=== PATIENT | female | born 1935 | race Caucasian/White ===

== ENCOUNTER 2018-11-06 12:37 | Inpatient (IN) | payer MEDICARE, OTHER ==
[~2018-11-06] VITALS: Ht 177.8 cm; Wt 72.7 kg
[~2018-11-06 12:37] MED LIST: ASCO500 PO; ATOR10 PO; Aspirin EC81 MG PO; CALCIUM + VITA1 EAC1 PO; Dyazide 37.5-21 EACH PO; FOLATE; TERB250 PO
[2018-11-06 13:40] LABS: BASOPHILS ABSOLUTE AUTO 0.02 K/mm3 (0.00-0.23); BASOPHILS PERCENT AUTO 0 % (0-2); EOSINOPHILS ABSOLUTE AUTO 0.02 K/mm3 (0.00-0.68); EOSINOPHILS PERCENT AUTO 0 % (0-6); Hematocrit 41.8 % (33.0-51.0); Hemoglobin 14.3 g/dL (11.5-16.0); IMMATURE GRAN ABSOLUTE AUTO 0.01 K/mm3 (0.00-0.10); IMMATURE GRAN PERCENT AUTO 0 % (0-1); LYMPHOCYTES ABSOLUTE AUTO 1.04 K/mm3 (0.84-5.20); LYMPHOCYTES PERCENT AUTO 21 % (21-46); MONOCYTES ABSOLUTE AUTO 0.46 K/mm3 (0.16-1.47); MONOCYTES PERCENT AUTO 9 % (4-13); Mean Corpuscular HGB 30.1 pg (26.0-34.0); Mean Corpuscular HGB Conc 34.2 g/dL (31.5-36.5); Mean Corpuscular Volume 88 fL (80-100); Mean Platelet Volume 10.3 fL (9.1-12.4); NEUTROPHILS ABSOLUTE AUTO 3.43 K/mm3 (1.96-9.15); NEUTROPHILS PERCENT AUTO 69 % (41-73); Platelet Count 221 K/mm3 (150-400); RDW Coefficient Variation 11.9 % (11.7-14.2); RDW Standard Deviation 38.3 fL (35.1-46.3); Red Blood Cell Count 4.75 M/mm3 (3.80-5.20); White Blood Cell Count 4.98 K/mm3 (4.00-11.30)
[2018-11-06 13:53] LABS: Albumin, Blood 3.6 g/dL (3.4-5.0); Albumin/Globulin Ratio 1.2 (0.8-1.8); Bilirubin, Total 1.2 mg/dL (0.1-1.0); Bun/Creatinine Ratio 24.6 (12.0-20.0); Calcium, Blood 9.8 mg/dL (8.5-10.1); Creatinine, Blood 1.26 mg/dL (0.40-1.00); Free Thyroxine 1.42 ng/dL (0.70-1.60); Magnesium, Blood 1.6 mg/dL (1.6-2.4); Total Protein, Blood 6.6 g/dL (6.4-8.2)
[2018-11-06 13:57] LABS: Thyroid Stimulating Hormone 0.869 uIU/mL (0.360-4.800)
[2018-11-06] MEDS ORDERED: CHLO25B PO (14:38)
[2018-11-06] MEDS ORDERED: METO25ER PO (14:38)
[2018-11-06] MEDS ORDERED: POTASSIUM99 MG PO (14:39)
[2018-11-06] MEDS ORDERED: FOLI1 PO (14:39)
[2018-11-06] MEDS ORDERED: Alph-E-Mixed400 UNIT PO (14:41)
[2018-11-06 16:48] LABS: Creatine Kinase MB 3.2 ng/mL (0.0-3.6); Creatine Kinase MB Index 4.5 (0.0-4.0); Troponin I 0.082 ng/mL (0.000-0.040)
[2018-11-06] MEDS ORDERED: CHOL10002 (18:05)
[2018-11-06 18:39] LABS: Source, Urine Voided
[2018-11-06 19:13] LABS: Appearance, Urine Hazy (Clear); Bilirubin, Urine Neg (Neg); Blood, Urine 1+ (Neg); Color, Urine Yellow (P-Yellow); Glucose Qualitative, Urine Neg (Neg); Ketones, Urine Neg (Neg); Leukocyte Esterase, Urine 2+ (Neg); Nitrite, Urine Pos (Neg); Protein, Urine Neg (Neg); Specific Gravity, Urine 1.015 (1.003-1.022); Urobilinogen, Urine NORM (Normal); pH, Urine 6.5 (5.0-8.0)
--- NOTE | 2018-11-06 20:09 | NUR ---
ARRIVAL TO UNIT Assumed care of pt upon arrival to unit at 1800. Report recieved from Nia ROGERS. Pt arrived to unit accompanied by Gio ROGERS. Pt on room air. Transferred from ED [facility] to PCU bed with standby assist. Pt tolerated transfer well. Pt arrived with her spouse and two female family members. Fall prevention education provided to pt with regards to her recent syncopal episodes. This RN educates pt not to get out of bed unless staff is present in room, even if she has family members at bedside. Pt also educated that bed alarm is applied to staff will know to assist the pt if she forgets to call. Pt verbalized understanding, but then continued to ask if she could go to the bathroom independently. Pt in atrial fibrillation per telemetry. Pt assisted to bedside commode, she tolerated this well. Pt states she becomes lightheaded and dizzy prior to having "an episode". This RN placed call to Dr Downing to request urinalysis as urine was heavily odiferous and cloudy. New orders given. Bedside report given to oncoming KEN Saucedo. Bed in lowest position. Call light in reach. Bed alarm applied.
[2018-11-06 20:18] LABS: Bacteria Many /hpf; Red Blood Cells, Urine 0-2 /hpf (0-2); Squamous Epithelial Cells Rare /hpf (Few)
[2018-11-07 00:51] LABS: Creatine Kinase MB Index 3.3 (0.0-4.0); Troponin I 0.157 ng/mL (0.000-0.040)
[2018-11-07 04:03] LABS: Hematocrit 39.9 % (33.0-51.0); Hemoglobin 13.1 g/dL (11.5-16.0); Mean Corpuscular HGB 30.3 pg (26.0-34.0); Mean Corpuscular HGB Conc 32.8 g/dL (31.5-36.5); Mean Platelet Volume 10.2 fL (9.1-12.4); Platelet Count 215 K/mm3 (150-400); RDW Standard Deviation 40.6 fL (35.1-46.3); Red Blood Cell Count 4.33 M/mm3 (3.80-5.20); White Blood Cell Count 6.47 K/mm3 (4.00-11.30)
[2018-11-07 04:05] LABS: Mean Corpuscular Volume 92 fL (80-100)
[2018-11-07 04:26] LABS: Bun/Creatinine Ratio 24.8 (12.0-20.0); Calcium, Blood 8.6 mg/dL (8.5-10.1); Creatinine, Blood 1.41 mg/dL (0.40-1.00); Magnesium, Blood 1.7 mg/dL (1.6-2.4); Phosphorus, Blood 4.1 mg/dL (2.5-4.9); Potassium, Blood 3.6 mmol/L (3.5-5.5)
--- NOTE | 2018-11-07 06:30 | NUR ---
MORNING SHOW [employer]UCER SUMMARY PT NEW ADMIT JUST BEFORE SHIFT CHANGE. PT AAOX4 AND VERY PLEASANT. STANDBY ASSIST TO BATHROOM DUE TO BEING ADMITTED FOR SYNCOPAL EPISODE AT HOME. PT BED ALARM IS ON FOR SAFETY. PT REPORTS NO DIZZINESS WHEN GETTING UP TO BATHROOM WITH STAFF. TELE SHOWS AFIB 80-90'S, OCCASIONALL TOUCHING IN 100'S WITH ACTIVITY. OTHER THAN THAT VSS, WILL CONTINUE TO MONITOR.
[2018-11-07 07:11] LABS: Creatine Kinase MB Index 3.3 (0.0-4.0); Troponin I 0.152 ng/mL (0.000-0.040)
--- NOTE | 2018-11-07 20:15 | NUR ---
SHIFT SUMMARY Assumed care of pt at 0700. Report received from Lewis ROGERS. Pt NPO until cardiology consulted pt. Plan of care discussed with Dr Bernstein. This RN clairified if AM metoprolol was to be given. Provider ordered medication to be held. Pt had family visiting intermittent throughout the day. Pt continued to forget fall precaution interventions and required continued use of bed alarms and chair alarms. No syncopal episodes today. Report given to Robyn ROGERS.
--- NOTE | 2018-11-08 05:54 | NUR ---
SHIFT SUMMARY PT IS AN 83 Y/O WOMAN, ADMITTED FOR SYNCOPAL EPISODES. SHE HAD POSITIVE ORTHOSTATIC BPS DURING THE DAY. BP WAS LOW DURING AM VITALS AT 94/56, ALL OTHER VITALS REMAINED STABLE. PT DENIED ANY COMPLAINTS OF PAIN, NAUSEA OR SOB. SHE WAS ABLE TO AMBULATE TO THE BATHROOM WITH MINIMAL ASSISTANCE. PT IS ON CONTINUOUS NS + 20 MEQ OF K+ AT 125 ML/HR. NO OTHER ACUTE CHANGES IN PT CONDITION NOTED. WILL CONTINUE TO MONITOR AND TREAT.
[2018-11-08 06:29] LABS: BASOPHILS ABSOLUTE AUTO 0.04 K/mm3 (0.00-0.23); BASOPHILS PERCENT AUTO 1 % (0-2); EOSINOPHILS ABSOLUTE AUTO 0.13 K/mm3 (0.00-0.68); EOSINOPHILS PERCENT AUTO 3 % (0-6); Hematocrit 35.9 % (33.0-51.0); Hemoglobin 11.6 g/dL (11.5-16.0); IMMATURE GRAN ABSOLUTE AUTO 0.01 K/mm3 (0.00-0.10); IMMATURE GRAN PERCENT AUTO 0 % (0-1); LYMPHOCYTES ABSOLUTE AUTO 1.56 K/mm3 (0.84-5.20); LYMPHOCYTES PERCENT AUTO 30 % (21-46); MONOCYTES ABSOLUTE AUTO 0.47 K/mm3 (0.16-1.47); MONOCYTES PERCENT AUTO 9 % (4-13); Mean Corpuscular HGB 30.3 pg (26.0-34.0); Mean Corpuscular HGB Conc 32.3 g/dL (31.5-36.5); Mean Corpuscular Volume 94 fL (80-100); Mean Platelet Volume 10.3 fL (9.1-12.4); NEUTROPHILS ABSOLUTE AUTO 2.93 K/mm3 (1.96-9.15); NEUTROPHILS PERCENT AUTO 57 % (41-73); Platelet Count 173 K/mm3 (150-400); RDW Coefficient Variation 12.5 % (11.7-14.2); RDW Standard Deviation 43.4 fL (35.1-46.3); Red Blood Cell Count 3.83 M/mm3 (3.80-5.20); White Blood Cell Count 5.14 K/mm3 (4.00-11.30)
[2018-11-08 06:47] LABS: Bun/Creatinine Ratio 24.7 (12.0-20.0); Calcium, Blood 7.7 mg/dL (8.5-10.1); Creatinine, Blood 0.97 mg/dL (0.40-1.00); Potassium, Blood 3.9 mmol/L (3.5-5.5)
--- NOTE | 2018-11-08 08:00 | NUR ---
pt laying in bed awake a/ox3, pleasant and cooperative with care, follows commands well, denies pain, sob, or dizziness, states she feels good, no complaints, is npo pending malgorzata scan today, lungs are clear t/o resp even and unlabored, no cough noted, hrr, tele in place running sr per monitor, see strip, 2+ edema noted to b/l le, ppp+1, cap refill <3sec, vs stable, afebrile, iv site is clear and patent, btx4, abd flat soft nontender, voids without diff, skin c/w/d, rocio hinton. call light in reach.
[2018-11-08] MEDS ORDERED: CEFU500T30 PO (17:19)
[2018-11-08] MEDS ORDERED: ELIQUIS5 MG PO (17:20)
== END 2018-11-08 17:44 | disposition home or self-care (01) | DRG 281 ==
LOC: ER 12:37 → PCU 16:19
PROVIDERS: Emergency Medicine; Internal Medicine Cardiovascular Disease; ADMIT Internal Medicine
DX: I48.0 Paroxysmal atrial fibrillation (principal); I21.A1 Myocardial infarction type 2; N39.0 Urinary tract infection, site not specified; N17.9 Acute kidney failure, unspecified; I95.1 Orthostatic hypotension; E87.6 Hypokalemia; E78.00 Pure hypercholesterolemia, unspecified; B96.20 Unspecified Escherichia coli [E. coli] as the cause of diseases classified elsewhere; I13.10 Hypertensive heart and chronic kidney disease without heart failure, with stage 1 through stage 4 chronic kidney disease, or unspecified chronic kidney disease; E11.22 Type 2 diabetes mellitus with diabetic chronic kidney disease; N18.3 Chronic kidney disease, stage 3 (moderate); E83.42 Hypomagnesemia; Z66 Do not resuscitate; E86.0 Dehydration; I47.1 Supraventricular tachycardia
CPT/HCPCS: 36415; 71046; 78452; 80048; 80053; 81001; 82550; 82553; 83735; 84100; 84439; 84443; 84484; 85025; 85027; 87077; 87086; 87186; 93005; 93010; 93017; 93306; 93880; 97161; 97530; 99285-25; A9500; J1650; J2785; J3475; J3480

== ENCOUNTER 2021-03-14 15:52 | Emergency (ER) | payer MEDICARE, OTHER ==
[~2021-03-14] VITALS: Ht 180.3 cm; Wt 77.1 kg
[~2021-03-14 15:52] MED LIST changes: +Alph-E-Mixed400 UNIT PO; +CEFU500T30 PO; +CHLO25B PO; +CHOL10002; +ELIQUIS5 MG PO; +FOLI1 PO; +METO25ER PO; +POTASSIUM99 MG PO
[2021-03-14 16:49] LABS: BASOPHILS ABSOLUTE AUTO 0.04 K/mm3 (0.00-0.23); BASOPHILS PERCENT AUTO 1 % (0-2); EOSINOPHILS ABSOLUTE AUTO 0.03 K/mm3 (0.00-0.68); EOSINOPHILS PERCENT AUTO 1 % (0-6); Hematocrit 42.4 % (33.0-51.0); Hemoglobin 13.9 g/dL (11.5-16.0); IMMATURE GRAN ABSOLUTE AUTO 0.01 K/mm3 (0.00-0.10); IMMATURE GRAN PERCENT AUTO 0 % (0-1); LYMPHOCYTES ABSOLUTE AUTO 1.53 K/mm3 (0.84-5.20); LYMPHOCYTES PERCENT AUTO 31 % (21-46); MONOCYTES ABSOLUTE AUTO 0.32 K/mm3 (0.16-1.47); MONOCYTES PERCENT AUTO 7 % (4-13); Mean Corpuscular HGB 30.3 pg (26.0-34.0); Mean Corpuscular HGB Conc 32.8 g/dL (31.5-36.5); Mean Corpuscular Volume 92 fL (80-100); Mean Platelet Volume 10.5 fL (9.1-12.4); NEUTROPHILS ABSOLUTE AUTO 2.97 K/mm3 (1.96-9.15); NEUTROPHILS PERCENT AUTO 61 % (41-73); Platelet Count 224 K/mm3 (150-400); RDW Coefficient Variation 12.5 % (11.7-14.2); RDW Standard Deviation 42.5 fL (35.1-46.3); Red Blood Cell Count 4.59 M/mm3 (3.80-5.20)
[2021-03-14 17:06] LABS: Alanine Aminotransfer (ALT/SGP 14 U/L (12-78); Albumin, Blood 3.4 g/dL (3.4-5.0); Albumin/Globulin Ratio 1.2 (0.8-1.8); Alk Phos 42 U/L (50-136); Anion Gap 3 mmol/L (6-16); Aspartate Aminotrans (AST/SGOT 14 U/L (12-37); Bilirubin, Total 0.6 mg/dL (0.1-1.0); Blood Urea Nitrogen 28 mg/dL (8-24); Bun/Creatinine Ratio 18.2 (12.0-20.0); CO2, Blood 28 mmol/L (21-32); Calcium, Blood 9.2 mg/dL (8.5-10.1); Chloride, Blood 109 mmol/L (98-108); Creatinine, Blood 1.54 mg/dL (0.40-1.00); Globulin, Blood 2.9 g/dL (2.2-4.0); Glomerular Filtration Rate 34 (60-); Glucose, Blood 87 mg/dL (70-99); Potassium, Blood 4.1 mmol/L (3.5-5.5); Sodium, Blood 140 mmol/L (136-145); Total Protein, Blood 6.3 g/dL (6.4-8.2); Troponin I <0.015 ng/mL (0.000-0.040)
[2021-03-14 22:53] LABS: Source, Urine Clean Catch
[2021-03-14 23:00] LABS: Appearance, Urine Hazy (Clear); Bilirubin, Urine Neg (Neg); Blood, Urine 2+ (Neg); Color, Urine Yellow (P-Yellow); Glucose Qualitative, Urine Neg (Neg); Ketones, Urine Neg (Neg); Leukocyte Esterase, Urine 2+ (Neg); Nitrite, Urine Pos (Neg); Protein, Urine 2+ (Neg); Specific Gravity, Urine 1.025 (1.003-1.022); Urobilinogen, Urine NORM (Normal)
[2021-03-14 23:09] LABS: Bacteria Many /hpf; Red Blood Cells, Urine 0-2 /hpf (0-2); Squamous Epithelial Cells Few /hpf (Few)
[2021-03-14] MEDS ORDERED: Keflex500 MG PO (23:36)
== END 2021-03-14 23:52 | disposition home or self-care (01) ==
LOC: ER 15:52
PROVIDERS: Emergency Medicine; Physician Assistant
DX: I48.91 Unspecified atrial fibrillation (principal); N39.0 Urinary tract infection, site not specified; I10 Essential (primary) hypertension; E78.00 Pure hypercholesterolemia, unspecified; Z79.01 Long term (current) use of anticoagulants; Z79.899 Other long term (current) drug therapy
CPT/HCPCS: 36415; 71046; 80053; 81001; 84484; 85025; 87077; 87086; 87186; 93005; 93010; 96365; 99285-25; J0696; J7030

== ENCOUNTER 2021-08-27 17:45 | Emergency (ER) | payer MEDICARE, OTHER ==
[~2021-08-27] VITALS: Ht 175.3 cm; Wt 71.7 kg
[~2021-08-27 17:45] MED LIST changes: +Keflex500 MG PO
[2021-08-27 18:37] LABS: BASOPHILS ABSOLUTE AUTO 0.03 K/mm3 (0.00-0.23); BASOPHILS PERCENT AUTO 1 % (0-2); EOSINOPHILS ABSOLUTE AUTO 0.01 K/mm3 (0.00-0.68); EOSINOPHILS PERCENT AUTO 0 % (0-6); Hematocrit 34.9 % (33.0-51.0); Hemoglobin 11.4 g/dL (11.5-16.0); IMMATURE GRAN ABSOLUTE AUTO 0.01 K/mm3 (0.00-0.10); IMMATURE GRAN PERCENT AUTO 0 % (0-1); LYMPHOCYTES ABSOLUTE AUTO 1.16 K/mm3 (0.84-5.20); LYMPHOCYTES PERCENT AUTO 21 % (21-46); MONOCYTES ABSOLUTE AUTO 0.39 K/mm3 (0.16-1.47); MONOCYTES PERCENT AUTO 7 % (4-13); Mean Corpuscular HGB 29.5 pg (26.0-34.0); Mean Corpuscular HGB Conc 32.7 g/dL (31.5-36.5); Mean Corpuscular Volume 90 fL (80-100); Mean Platelet Volume 11.5 fL (9.1-12.4); NEUTROPHILS ABSOLUTE AUTO 4.06 K/mm3 (1.96-9.15); NEUTROPHILS PERCENT AUTO 72 % (41-73); Platelet Count 222 K/mm3 (150-400); RDW Coefficient Variation 13.6 % (11.7-14.2); RDW Standard Deviation 45.1 fL (35.1-46.3); Red Blood Cell Count 3.86 M/mm3 (3.80-5.20); White Blood Cell Count 5.66 K/mm3 (4.00-11.30)
== END 2021-08-27 19:34 | disposition home or self-care (01) ==
LOC: ER 17:45
PROVIDERS: Physician Assistant
DX: R04.0 Epistaxis (principal); I10 Essential (primary) hypertension; I48.91 Unspecified atrial fibrillation; E78.00 Pure hypercholesterolemia, unspecified; F03.90 Unspecified dementia, unspecified severity, without behavioral disturbance, psychotic disturbance, mood disturbance, and anxiety; Z79.899 Other long term (current) drug therapy
CPT/HCPCS: 30901; 85025; 99283-25; A9270

== ENCOUNTER 2022-07-09 23:42 | Observation (INO) | payer MEDICARE, OTHER ==
[~2022-07-09] VITALS: Ht 172.7 cm; Wt 80.7 kg
[~2022-07-09 23:42] MED LIST changes: -CALCIUM + VITA1 EAC1 PO; +CALCIUM 600 WI1 EAC1 PO; +DIGOX125 MC1 PO; +DONEPEZIL HCL10 MG PO; +FURO20 PO; +LISI5 PO; +MEMA5TAB PO; +POTA10T PO
[2022-07-10 00:20] LABS: BASOPHILS ABSOLUTE AUTO 0.07 K/mm3 (0.00-0.23); BASOPHILS PERCENT AUTO 1 % (0-2); EOSINOPHILS ABSOLUTE AUTO 0.07 K/mm3 (0.00-0.68); EOSINOPHILS PERCENT AUTO 1 % (0-6); Hematocrit 42.1 % (33.0-51.0); Hemoglobin 14.8 g/dL (11.5-16.0); IMMATURE GRAN ABSOLUTE AUTO 0.02 K/mm3 (0.00-0.10); IMMATURE GRAN PERCENT AUTO 0 % (0-1); LYMPHOCYTES ABSOLUTE AUTO 2.12 K/mm3 (0.84-5.20); LYMPHOCYTES PERCENT AUTO 27 % (21-46); MONOCYTES ABSOLUTE AUTO 0.41 K/mm3 (0.16-1.47); MONOCYTES PERCENT AUTO 5 % (4-13); Mean Corpuscular HGB 30.5 pg (26.0-34.0); Mean Corpuscular HGB Conc 35.2 g/dL (31.5-36.5); Mean Corpuscular Volume 87 fL (80-100); NEUTROPHILS ABSOLUTE AUTO 5.05 K/mm3 (1.96-9.15); NEUTROPHILS PERCENT AUTO 65 % (41-73); Platelet Count 278 K/mm3 (150-400); RDW Coefficient Variation 12.5 % (11.7-14.2); RDW Standard Deviation 39.9 fL (35.1-46.3); Red Blood Cell Count 4.85 M/mm3 (3.80-5.20); White Blood Cell Count 7.74 K/mm3 (4.00-11.30)
[2022-07-10 00:47] LABS: Albumin, Blood 3.7 g/dL (3.4-5.0); Bilirubin, Total 0.7 mg/dL (0.1-1.0); Bun/Creatinine Ratio 21.4 (12.0-20.0); Calcium, Blood 9.5 mg/dL (8.5-10.1); Creatinine, Blood 1.26 mg/dL (0.40-1.00); Globulin, Blood 3.6 g/dL (2.2-4.0); Total Protein, Blood 7.3 g/dL (6.4-8.2)
[2022-07-10 06:36] LABS: Influenza A, PCR NEGATIVE (NEGATIVE); Influenza B, PCR NEGATIVE (NEGATIVE); Resp Syncytial Virus, PCR NEGATIVE (NEGATIVE); SARS-Cov-2 (COVID-19) PCR, MMC NEGATIVE (NEGATIVE)
--- NOTE | 2022-07-10 07:30 | NUR ---
ASSUMED CARE: PT RESTING IN BED, QUIET, LOOKING AROUND ROOM. THIS RN ATTEMPTED TO ASK PT'S NAME AND AND PT STARED. FAMILY STATED THAT PT HAS DEMENTIA AND THEY ANSWERED FOR HER. AFIB ON TELE IN THE 70S. DENIES ABDOMINAL PAIN AT THIS TIME.
--- NOTE | 2022-07-10 08:42 | NUR ---
DR ANDRES CAME TO SEE PT AND DISCUSSED SITUATION WITH FAMILY. DR INSTRUCTS FOR OBSERVATION AT THIS TIME AND DOES NOT FEEL THAT PT IS HAVING AN ACUTE APPENDICITIS. STATES CLEAR LIQUID DIET IS OK AND WILL DISCUSS FURTHER ORDERS WITH HOSPITALIST.
--- NOTE | 2022-07-10 08:54 | NUR ---
REPORT CALLED TO KEN SCHAFER ON SURGICAL FLOOR. PT TRANSFERRED VIA GURNEY BY [employer]. FAMILY FOLLOWING UPON TRANSFER.
--- NOTE | 2022-07-10 15:45 | NUR ---
Pt. is awake in bed. Spouse is present and welcomes my visit. Pt. seems unsettled from her dementia. Spouse displays evidence of patience, love, and support for the Pt. With empathy and a calming presence establish rapport with the Pt. and Spouse. Prayed with Pt. Pt. displayed a smile, and both Pt. and spouse verbalized gratitude for the spiritual care visit.
--- NOTE | 2022-07-10 18:06 | NUR ---
SHIFT SUMMARY PT ARRIVED AROUND 0900. IVF & ABX HAVE INFUSED SINCE ARRIVAL. ONLY TAKING SIPS OF WATER. ONLY NOW INTERESTED IN A JELLO. SINCE ARRIVAL HAS HAD 2 SMALL EPISODES OF EMESIS w/ LESS THAN 100 MLS; ONLY HAPPENS AFTER ACTIVITY TO BSC. NO EMESIS w/ LAST TRANSFER TO BSC. HAS DENIED PAIN IN ABD BUT DOES WINCE SLIGHTLY w/ GENTLE PALPATION OF ABD.
--- NOTE | 2022-07-10 19:21 | NUR ---
TACHY/AFIB TELE CALLED TO REPORT HR INCREASE TO 150's IN A FIB w/ RVR. PT WAS FOUND TO BE SITTING ON BSC DRY HEAVING. ONCE BACK TO BED & RESTING FOR 5 MINS, TELE REPORTS A FIB @ 90. PT DENIES CP, SOB, OR CHANGES. OF NOTE, PT WAS NOT ABLE TO TAKE METOPROLOL OR DIGOXIN DUE TO N/V THIS MORNING.
--- NOTE | 2022-07-11 04:37 | NUR ---
CARDIAC TELE CALLED AND NOTIFIED THAT THE PATIENT HAD A 3.75 SECOND PAUSE, AND T/O THE NIGHT IT APPEARS IF THE PATIENT HAS BEEN HAVING REGULAR ONE SECOND PAUSES/SKIPPED BEATS. HOSPITALIST CALLED AND NOTIFIED OF THIS, INSTRUCTED TO SKIP TOPROLOL XL AND DIG THIS AM, AND TO NOTIFY THE DAYTIME HOSPITALIST. WLL PASS ONTO DAY SHIFT.
[2022-07-11 05:22] LABS: BASOPHILS ABSOLUTE AUTO 0.02 K/mm3 (0.00-0.23); BASOPHILS PERCENT AUTO 0 % (0-2); EOSINOPHILS PERCENT AUTO 0 % (0-6); Hemoglobin 13.2 g/dL (11.5-16.0); IMMATURE GRAN ABSOLUTE AUTO 0.03 K/mm3 (0.00-0.10); IMMATURE GRAN PERCENT AUTO 0 % (0-1); LYMPHOCYTES ABSOLUTE AUTO 1.05 K/mm3 (0.84-5.20); LYMPHOCYTES PERCENT AUTO 12 % (21-46); MONOCYTES ABSOLUTE AUTO 0.55 K/mm3 (0.16-1.47); MONOCYTES PERCENT AUTO 7 % (4-13); Mean Corpuscular HGB 29.7 pg (26.0-34.0); Mean Corpuscular Volume 90 fL (80-100); Mean Platelet Volume 10.2 fL (9.1-12.4); NEUTROPHILS ABSOLUTE AUTO 6.86 K/mm3 (1.96-9.15); NEUTROPHILS PERCENT AUTO 81 % (41-73); Platelet Count 259 K/mm3 (150-400); RDW Coefficient Variation 13.1 % (11.7-14.2); RDW Standard Deviation 43.6 fL (35.1-46.3); Red Blood Cell Count 4.44 M/mm3 (3.80-5.20); White Blood Cell Count 8.51 K/mm3 (4.00-11.30)
[2022-07-11 05:28] LABS: Bun/Creatinine Ratio 14.7 (12.0-20.0); Calcium, Blood 8.2 mg/dL (8.5-10.1); Creatinine, Blood 1.09 mg/dL (0.40-1.00); Potassium, Blood 3.3 mmol/L (3.5-5.5)
--- NOTE | 2022-07-11 05:48 | NUR ---
THE PT SLEPT WELL T/O THE NIGHT. VSS. TELE REPORTS T/O THE NIGHT THAT THE PATIENT HAS BEEN IN AFIB. 90'S T/O THE NIGHT AND 60'S THIS AM. SEE PREVIOUS NOTE FOR INFORMATION ON PATIENTS CARDIAC PAUSES AND MEDICATION INSTRUCTIONS. THE PATIENT HAS REMAINED ASYMPTOMATIC T/O THENGIHT. AMBULATED TO THE [facility], WEAKNESS AND POOR BALANCE NOTED. VOIDING W/O DIFFICULTY. THE PT DID NOT C/O NAUSEA OR PAIN T/O THE NIGHT. REMAINS AT BEDSIDE. PLAN FOR PT TO CONTINUE IV ANTIBIOTICS AND ADVANCE DIET TOLLERATED. THE PATIENT IS CURRENTLY RESTING, IN NO DISTRESS. CALL LIGHT IN REACH.
--- NOTE | 2022-07-11 07:52 | NUR ---
CARDIAC TELE CALLED THIS AM TO NOTIFY PATIENT HAD A 3 SECOND PAUSE FOLLOWED BY BRADYCARDIA OF 32/BEATS FOR 3 BEATS. PATIENT CURRENTLY IN A-FIB AT 63 PER ALIGNER IAN.DR. MILLIGAN NOTIFIED. VSS.
[2022-07-11 08:43] LABS: Digoxin (Lanoxin) 0.68 ug/mL (0.80-2.00)
--- NOTE | 2022-07-11 10:53 | NUR ---
Pt. is awake in bed. Soupse is present and both welcome my visit. Pt. is pleasant, and has no obvious signs of discomfort. Spouse verbalized concerns over some of her meds being changed, and that her cardiac physician would be notified. Listen empatheticially and agree to assist in seeking an answer. Prayed with Pt. Pt. displayed evidence of awareness and gave this mandarin chinese teacher a "thumbs up" after the prayer. Received clarification from the [facility] nurse regarding notification of prescription changes, and communicated that to spouse. Spouse verbalized gratitude for the spiritual care visit.
--- NOTE | 2022-07-11 11:14 | NUR ---
Pt. is awake and getting back in bed. Spouse is present. Pt. is unsettled by the discomfort for the air tube. Listen empathetically with a calming presence. Pt. verbalizes that her bill is not a regular part of her life. Rapport is established. Agree to be avilable to the Pt. Pt. verbalizes gratitude for the spiritual care visit.
[2022-07-11 14:39] LABS: Albumin, Blood 3.1 g/dL (3.4-5.0); Anion Gap 8 mmol/L (6-16); Blood Urea Nitrogen 15 mg/dL (8-24); Bun/Creatinine Ratio 14.3 (12.0-20.0); CO2, Blood 26 mmol/L (21-32); Calcium, Blood 8.3 mg/dL (8.5-10.1); Chloride, Blood 108 mmol/L (98-108); Creatinine, Blood 1.05 mg/dL (0.40-1.00); Glomerular Filtration Rate 52 (60-); Glucose, Blood 99 mg/dL (70-99); Phosphorus, Blood 1.9 mg/dL (2.5-4.9); Potassium, Blood 3.4 mmol/L (3.5-5.5); Sodium, Blood 142 mmol/L (136-145)
[2022-07-11] MEDS ORDERED: AMOCLA875 PO (15:17)
[2022-07-11] MEDS ORDERED: LACT PO (15:18)
--- NOTE | 2022-07-11 16:07 | NUR ---
DISCHARGE PATIENT TOLERATING PO, VOIDING, DENIES N/V, CHEST PAIN, SOB. STRESSED IMPORTANCE OF FOLLOW UP WITH PRIMARY, AND CARDIOLOGY. IV OUT, TELE OFF. PATIENT LEFT VIA WHEELCHAIR.
== END 2022-07-11 15:53 | disposition home or self-care (01) ==
LOC: ER 23:42 → SURS 23:43 → ERHOLD 23:43 → SURS 07-10 08:43
PROVIDERS: Emergency Medicine; Internal Medicine; ADMIT Family Medicine
DX: R11.2 Nausea with vomiting, unspecified (principal); E87.6 Hypokalemia; N17.9 Acute kidney failure, unspecified; I48.91 Unspecified atrial fibrillation; Z79.01 Long term (current) use of anticoagulants; F03.90 Unspecified dementia, unspecified severity, without behavioral disturbance, psychotic disturbance, mood disturbance, and anxiety; Z96.642 Presence of left artificial hip joint; Z20.822 Contact with and (suspected) exposure to COVID-19; R10.9 Unspecified abdominal pain
CPT/HCPCS: 0241U; 36415; 74177; 80048; 80053; 80069; 80162; 83605; 83690; 83735; 84484; 85025; 93005; 93010; 96361; 96365; 96365-59; 96366; 96375; 96376; 99285-25; A9270; G0378; J0696; J2405; J3480; J7030; Q9967